=== PATIENT | male | born 1945 | race Hispanic/Latino ===

== ENCOUNTER 2018-06-22 13:17 | Observation (INO) | payer OTHER, MEDICARE ==
[2018-06-22] VITALS (8 sets, daily range): BP systolic 80–117; BP diastolic 47–72
[~2018-06-22] VITALS: Ht 162.6 cm; Wt 68.9 kg
[~2018-06-22 13:17] MED LIST: LOSA50TA25 PO; WARF-57 PO
[2018-06-22] MEDS ORDERED: ACETAMINOPHEN 325 MG TAB ONE (13:39)
[2018-06-22 13:43] LABS: BASOPHILS % (AUTO) 0.3 % (0.0-5.0); EOSINOPHILS % (AUTO) 0.1 % (0.0-8.0); HEMATOCRIT 35.3 % (42-54); LYMPHOCYTES % (AUTO) 3.3 % (21.0-51.0); MEAN CORPUSCULAR HEMOGLOBIN 28.6 pg (27.0-33.0); MEAN CORPUSCULAR HGB CONC 33.5 g/dL (32.0-36.0); MEAN CORPUSCULAR VOLUME 85.5 fL (79-99); MONOCYTES % (AUTO) 2.6 % (3.0-13.0); NEUTROPHILS % (AUTO) 93.7 % (40.0-77.0); PLATELET COUNT (AUTO) 77 K/uL (130-400); RED BLOOD CELL COUNT(AUTO) 4.13 MIL/uL (4.50-6.20); RED CELL DISTRIBUTION WIDTH 15.8 % (11.0-15.5); WHITE BLOOD COUNT (AUTO) 7.5 K/uL (4.8-10.8)
[2018-06-22 13:57] LABS: APPEARANCE,URINE CLEAR (CLEAR); BILIRUBIN,URINE NEGATIVE (NEGATIVE); COLOR,URINE YELLOW (YELLOW); GLUCOSE, URINE (UA) NEGATIVE (NEGATIVE); KETONES,URINE NEGATIVE (NEGATIVE); LEUKOCYTE ESTERASE ,URINE NEGATIVE (NEGATIVE); NITRATE,URINE NEGATIVE (NEGATIVE); OCCULT BLOOD,URINE NEGATIVE (NEGATIVE); PH,URINE 7.5 (5.0-8.0); PROTEIN,URINE NEGATIVE (NEGATIVE); UROBILINOGEN,URINE 0.2 mg/dL (0.2-1.0)
[2018-06-22] MEDS ORDERED: SODIUM CHLORIDE 0.9% 1000ML 1,000 ML IV ONE (13:57)
[2018-06-22] MEDS ORDERED: CEFTRIAXONE SODIUM 1 GM ONE (14:01)
[2018-06-22 14:02] LABS: INR 2.64 (0.85-1.15); PARTIAL THROMBOPLASTIN TIME 34.6 SEC (26.3-35.5); PROTHROMBIN TIME 27.2 SEC (9.6-11.6)
[2018-06-22 14:06] LABS: CARBON DIOXIDE 27 mmol/L (21-32); CHLORIDE 107 mmol/L (101-111); CREATININE 1.3 mg/dL (0.5-1.5); GLOMERULAR FILTR. RATE CALC 57 mL/min (>60); GLUCOSE,RANDOM 164 mg/dL (70-105); POTASSIUM 3.3 mmol/L (3.5-5.1); SODIUM SERUM 144 mmol/L (136-145); UREA NITROGEN, BLOOD 14 mg/dL (7-18)
[2018-06-22 14:17] LABS: ALANINE AMINOTRANSFERASE 31 U/L (12-78); ALBUMIN 3.5 g/dL (3.5-5.0); ASPARTATE AMINOTRANSFERASE 26 U/L (10-37); BILIRUBIN,TOTAL 0.9 mg/dL (0.2-1.0); CREATINE KINASE, TOTAL 169 U/L (21-232); MYOGLOBIN 313 ng/mL (10-92); TOTAL PROTEIN, SERUM 6.9 g/dL (6.0-8.3); TROPONIN I < 0.04 ng/mL (0.00-0.06)
[2018-06-22] MEDS ORDERED: AZITHROMYCIN 250 MG TABLET PO ONE (15:37)
[2018-06-22] MEDS ORDERED: IBUPROFEN 200 MG TAB ONE (15:38)
[2018-06-22] MEDS ORDERED: IBUPROFEN 400 MG TABLET ONE (15:38)
[2018-06-22] MEDS ORDERED: LEVOFLOXACIN 750 MG/D5W 150 ML 150 ML ONE (16:33)
[2018-06-22] MEDS ORDERED: ACETAMINOPHEN 325 MG TAB PO PRN (17:00)
--- NOTE | 2018-06-22 18:30 | NUR ---
PT ARRIVED TO THE FLOOR DENIES SOB OR CHEST PAIN PT ALERT AND ORIENTED X 3 FAMILY AT BED SIDE ENDORSE CARE TO NIGHT NURSE
[2018-06-22] MEDS: SODIUM CHLORIDE 0.9% 1000ML 1,000 ML IV SCH (19:50)
[2018-06-22] MEDS ORDERED: LACTATED RINGERS 1000ML 1,000 ML IV ONE (20:04)
--- NOTE | 2018-06-22 20:14 | NUR ---
COMMUNICATIONS ENGINEERING TECHNICIAN GUANAKO MADE AWARE OF PT'S COUMADIN MEDICATION AT HOME
[2018-06-22] MEDS ORDERED: LACTATED RINGERS 1000ML IV SCH (20:15)
[2018-06-22] MEDS ORDERED: POTASSIUM CHLORIDE 20 MEQ ERTAB PO PRN (20:30)
[2018-06-22] MEDS ORDERED: MAGNESIUM 2GM PREMIX 50ML 50 ML IV PRN (20:30)
[2018-06-22] MEDS ORDERED: POTASSIUM CHLORIDE 10% ELIXIR 20 MEQ/15 ML UDCUP PO PRN (20:30)
[2018-06-22] MEDS ORDERED: LIDOCAINE HCL-MPF 1% 2ML VIAL IVP PRN (20:30)
[2018-06-22] MEDS ORDERED: POTASSIUM CHLORIDE 20MEQ/100ML 100 ML IV PRN (20:30)
[2018-06-22] MEDS ORDERED: POTASSIUM CHLORIDE 20 MEQ ERTAB PO ONE (20:36)
[2018-06-22] MEDS: INSULIN HUMULIN R 100 UNIT/ML 3ML SQ SCH (20:55)
[2018-06-22] MEDS: DOXYCYCLINE 100MG+NS 250ML 250 ML IV SCH (22:17)
[2018-06-22] MEDS ORDERED: GLIP2.5T2 PO (22:42)
[2018-06-22] MEDS ORDERED: FURO20TA4 PO (22:42)
[2018-06-22] MEDS ORDERED: METO25TA6 PO (22:42)
[2018-06-22] MEDS ORDERED: ATOR40TA69 PO (22:42)
[2018-06-22] MEDS ORDERED: WARF-57 PO (22:42)
[2018-06-22] MEDS ORDERED: LEVO25TA54 PO (22:42)
[2018-06-22] MEDS ORDERED: WARF2.5T85 PO (22:42)
[2018-06-22] MEDS ORDERED: PANT40TA25 PO (22:42)
[2018-06-22] MEDS ORDERED: TYL3 PO (22:42)
[2018-06-23] VITALS (7 sets, daily range): BP systolic 90–130; BP diastolic 54–67
[2018-06-23 05:53] LABS: HEMATOCRIT 30.5 % (42-54); MEAN CORPUSCULAR HEMOGLOBIN 29.2 pg (27.0-33.0); MEAN CORPUSCULAR HGB CONC 33.6 g/dL (32.0-36.0); MEAN CORPUSCULAR VOLUME 87.1 fL (79-99); PLATELET COUNT (AUTO) 63 K/uL (130-400); RED CELL DISTRIBUTION WIDTH 16.3 % (11.0-15.5); WHITE BLOOD COUNT (AUTO) 10.2 K/uL (4.8-10.8)
[2018-06-23 06:07] LABS: CREATININE 1.1 mg/dL (0.5-1.5); MAGNESIUM 1.3 mg/dL (1.80-2.40); POTASSIUM 3.8 mmol/L (3.5-5.1)
[2018-06-23] MEDS: SODIUM CHLORIDE 0.9% 1000ML 1,000 ML IV SCH ×2 (06:35→21:29)
[2018-06-23] MEDS: INSULIN HUMULIN R 100 UNIT/ML 3ML SQ SCH ×4 (06:40→21:00)
[2018-06-23] MEDS: DOXYCYCLINE 100MG+NS 250ML 250 ML IV SCH ×2 (08:52→21:29)
--- NOTE | 2018-06-23 13:50 | NUR ---
RD Notification received. Patient tolerating current 7gm CCD with no report of GI distress and with fair PO at 50-75%. RD rec to modify to add Heart Healthy as patient Hx with HTN. Patient with elevated Na, Cl, Glu lab values with NaCl and antibiotic medications in place. RD to continue to monitor lab values. Additional lab values monitored: Ca 7.7, Mg 1.3. Patient BMI 26.1; okay for age. RD to continue to monitor nutritional labs and PO intake. Please notify RD as nutritional concerns arise. Thank you. Addendum: 06/23/18 at [address] RD Amended: Links added.
[2018-06-23] MEDS ORDERED: LEVOFLOXACIN 750 MG/D5W 150 ML 150 ML IV SCH (16:00)
[2018-06-24 03:00] VITALS: BP 133/73
[2018-06-24] MEDS: INSULIN HUMULIN R 100 UNIT/ML 3ML SQ SCH ×3 (06:17→16:30)
[2018-06-24 08:00] VITALS: BP 134/67
[2018-06-24] MEDS: DOXYCYCLINE 100MG+NS 250ML 250 ML IV SCH (08:31)
[2018-06-24] MEDS: SODIUM CHLORIDE 0.9% 1000ML 1,000 ML IV SCH (08:31)
[2018-06-24 11:59] VITALS: BP 148/79
[2018-06-24] MEDS ORDERED: DOXY100C2 PO (12:02)
[2018-06-24 16:00] VITALS: BP 151/78
== END 2018-06-24 18:35 | disposition home or self-care (01) ==
LOC: EDH 13:17 → EDHIP 16:28 → INTOOBSV 16:28 → OBSVTOIN 16:28 → 3CH 18:29
PROVIDERS: ADMIT Internal Medicine Pulmonary Disease; ATTEND Internal Medicine Pulmonary Disease
DX: R50.9 Fever, unspecified (principal); I25.10 Atherosclerotic heart disease of native coronary artery without angina pectoris; I10 Essential (primary) hypertension; E03.9 Hypothyroidism, unspecified; D68.59 Other primary thrombophilia; E11.51 Type 2 diabetes mellitus with diabetic peripheral angiopathy without gangrene; E66.9 Obesity, unspecified; K59.00 Constipation, unspecified; Z79.01 Long term (current) use of anticoagulants; Z95.1 Presence of aortocoronary bypass graft; Z79.899 Other long term (current) drug therapy
CPT/HCPCS: 36415 ×2; 71045; 80048; 80053; 80339; 81003; 82550; 82948 ×8; 83605; 83735; 83874; 84484; 85025; 85027; 85610; 85730; 87040 ×4; 87077 ×3; 87088; 87186 ×3; 87804 ×2; 93005; 96365; 96366 ×3; 96367; 96375; 97116 ×2; 97161; 99284; G0378 ×50; G8978; G8979; G8980; G8981; G8982; G8983; J0696; J1956 ×2; J3475; J3490 ×2; J7030 ×4; J7120 ×2

== ENCOUNTER → 2018-06-30 | Outpatient (CLI) | payer OTHER, MEDICARE ==
[~2018-06-30] MED LIST changes: +ATOR40TA69 PO; +DOXY100C2 PO; +FURO20TA4 PO; +GLIP2.5T2 PO; +LEVO25TA54 PO; -LOSA50TA25 PO; +METO25TA6 PO; +PANT40TA25 PO; +TYL3 PO; +WARF2.5T85 PO
== END | disposition home or self-care (01) ==
LOC: RAH 13:04
PROVIDERS: ATTEND Internal Medicine Hematology & Oncology
DX: I82.431 Acute embolism and thrombosis of right popliteal vein (principal); D68.59 Other primary thrombophilia; D68.9 Coagulation defect, unspecified
CPT/HCPCS: 93971

== ENCOUNTER → 2018-07-26 | Outpatient (CLI) | payer OTHER, MEDICARE | END | disposition home or self-care (01) | LOC: RAH 14:15 | PROVIDERS: ATTEND Internal Medicine Hematology & Oncology | DX: I82.501 Chronic embolism and thrombosis of unspecified deep veins of right lower extremity (principal); I82.431 Acute embolism and thrombosis of right popliteal vein | CPT/HCPCS: 93971 ==

== ENCOUNTER → 2018-11-07 | Outpatient (CLI) | payer OTHER, MEDICARE | END | disposition home or self-care (01) | LOC: SHCH 07:43 | PROVIDERS: ATTEND Internal Medicine Cardiovascular Disease | DX: I82.812 Embolism and thrombosis of superficial veins of left lower extremity (principal) | CPT/HCPCS: 93970 ==

== ENCOUNTER 2021-04-20 23:02 | Emergency (ER) | payer OTHER, MEDICARE ==
[~2021-04-20] VITALS: Ht 157.5 cm; Wt 68.0 kg
[~2021-04-20 23:02] MED LIST changes: +ACET-3194 PO; -DOXY100C2 PO; +ISOS20TA85 PO; -METO25TA6 PO; +MULT-1052 PO; -PANT40TA25 PO; +PANT40TA54 PO; -TYL3 PO
[2021-04-20 23:21] VITALS: BP 122/57
== END 2021-04-21 02:26 | disposition home or self-care (01) ==
LOC: EDH 23:02
DX: I83.891 Varicose veins of right lower extremity with other complications (principal); D69.6 Thrombocytopenia, unspecified; E11.9 Type 2 diabetes mellitus without complications; E78.00 Pure hypercholesterolemia, unspecified; I11.9 Hypertensive heart disease without heart failure; Z79.01 Long term (current) use of anticoagulants; Z79.84 Long term (current) use of oral hypoglycemic drugs; Z79.899 Other long term (current) drug therapy

== ENCOUNTER → 2021-09-07 | Outpatient (CLI) | payer OTHER, MEDICARE ==
[~2021-09-07] MED LIST changes: +IOHEXOL-350 50ML VIAL IV ONE
== END | disposition home or self-care (01) ==
LOC: RAH 07:43
PROVIDERS: ATTEND Internal Medicine Gastroenterology
DX: R63.4 Abnormal weight loss (principal); N40.2 Nodular prostate without lower urinary tract symptoms; Z95.828 Presence of other vascular implants and grafts
CPT/HCPCS: 74178; Q9967

== ENCOUNTER 2021-10-04 10:53 | Observation (INO) | payer OTHER, MEDICARE ==
[~2021-10-04] VITALS: Ht 152.4 cm; Wt 64.3 kg
[~2021-10-04 10:53] MED LIST changes: -IOHEXOL-350 50ML VIAL IV ONE
[2021-10-04] MEDS ORDERED: MORPHINE 4 MG SYG IVP SCH (11:30)
[2021-10-04] MEDS ORDERED: ONDANSETRON 4MG INJ IVP SCH (11:30)
[2021-10-04] MEDS ORDERED: 0.9%NACL 1000ML 1,000 ML IV SCH ×2 (11:30→19:00)
[2021-10-04 11:33] LABS: BASOPHILS % (AUTO) 0.4 % (0.0-5.0); EOSINOPHILS % (AUTO) 0.6 % (0.0-8.0); HEMATOCRIT 38.4 % (42-54); LYMPHOCYTES % (AUTO) 19.8 % (21.0-51.0); MEAN CORPUSCULAR HGB CONC 33.9 g/dL (32.0-36.0); MEAN CORPUSCULAR VOLUME 88.5 fL (79-99); MONOCYTES % (AUTO) 7.5 % (3.0-13.0); NEUTROPHILS % (AUTO) 71.5 % (40.0-77.0); PLATELET COUNT (AUTO) 129 K/uL (130-400); RED BLOOD CELL COUNT(AUTO) 4.34 MIL/uL (4.50-6.20); RED CELL DISTRIBUTION WIDTH 13.1 % (11.0-15.5); WHITE BLOOD COUNT (AUTO) 4.9 K/uL (4.8-10.8)
[2021-10-04 11:50] LABS: CREATININE 1.3 mg/dL (0.5-1.5); POTASSIUM 4.2 mmol/L (3.5-5.1)
[2021-10-04 11:55] LABS: INR 2.82 (0.85-1.15)
[2021-10-04 11:57] LABS: PARTIAL THROMBOPLASTIN TIME 38.4 SEC (26.3-35.5)
[2021-10-04 11:58] LABS: ALBUMIN 3.8 g/dL (3.5-5.0); BILIRUBIN,TOTAL 0.4 mg/dL (0.2-1.0); TOTAL PROTEIN, SERUM 7.4 g/dL (6.0-8.3)
[2021-10-04] MEDS ORDERED: ZOSYN 3.375GM +NS 50ML IV SCH (13:00)
[2021-10-04] MEDS ORDERED: VANCOMYCIN KIT 1 GM/250 ML IV.KIT IV ONE (13:00)
[2021-10-04] MEDS ORDERED: 0.9%NACL 50ML 50 ML IV ONE (13:15)
[2021-10-04] MEDS ORDERED: VANCOMYCIN 1G/250ML KIT 250 ML IV ONE (14:38)
[2021-10-04] MEDS ORDERED: FERR-82 PO (14:56)
[2021-10-04] MEDS ORDERED: SPIR25TA PO (14:56)
[2021-10-04] MEDS ORDERED: DAPA10TA PO (14:56)
[2021-10-04] MEDS ORDERED: MIRT-93 PO (14:56)
[2021-10-04] MEDS ORDERED: PENT400T72 PO (14:56)
[2021-10-04] MEDS ORDERED: ASCO500C6 PO (14:56)
[2021-10-04] MEDS ORDERED: SULF1TAB42 PO (14:56)
[2021-10-04] MEDS ORDERED: CLIN-141 PO (14:56)
[2021-10-04 15:15] VITALS: BP 107/50
[2021-10-04 20:00] VITALS: BP 101/52
[2021-10-04] MEDS: ZOSYN 3.375GM+NS 50ML 50 ML IV SCH (21:05)
[2021-10-05] VITALS (7 sets, daily range): BP systolic 107–131; BP diastolic 52–62
[2021-10-05] MEDS: ZOSYN 3.375GM+NS 50ML 50 ML IV SCH ×3 (04:42→22:10)
[2021-10-05] MEDS: VANCOMYCIN 1G/250ML KIT 250 ML IV SCH (10:26)
[2021-10-05] MEDS: PENTOXIFYLLINE 400 MG TABLET.SA PO SCH ×2 (14:12→22:09)
[2021-10-05] MEDS ORDERED: WARFARIN SODIUM 5 MG TAB PO SCH (16:00)
[2021-10-05] MEDS ORDERED: MIRTAZAPINE 15 MG TABLET PO SCH (21:00)
[2021-10-05] MEDS ORDERED: NON-FORMULARY MEDICATION 1 EACH (Mirtazapine 30 MG) PO SCH (21:00)
[2021-10-05] MEDS ORDERED: ATORVASTATIN 40 MG TABLET PO SCH (21:00)
[2021-10-06 04:27] VITALS: BP 146/58
[2021-10-06] MEDS: ZOSYN 3.375GM+NS 50ML 50 ML IV SCH (05:36)
[2021-10-06] MEDS ORDERED: LEVOTHYROXINE 25 MCG TABLET PO SCH (07:30)
[2021-10-06 08:00] VITALS: BP 134/66
[2021-10-06] MEDS ORDERED: GLIPIZIDE XL 2.5MG TAB PO SCH (09:00)
[2021-10-06] MEDS ORDERED: NON-FORMULARY MEDICATION 1 EACH (Ascorbic Acid (Vitamin C) 500 MG) PO SCH (09:00)
[2021-10-06] MEDS ORDERED: PANTOPRAZOLE 40 MG TAB DR PO SCH (09:00)
[2021-10-06] MEDS ORDERED: ISOSORBIDE MONONITRATE 20 MG TABLET PO SCH (09:00)
[2021-10-06] MEDS ORDERED: (Dapagliflozin Propanediol (Farxiga) 10 MG) PO SCH (09:00)
[2021-10-06] MEDS ORDERED: FERROUS SULFATE 325 MG TABLET.DR PO SCH (09:00)
[2021-10-06] MEDS ORDERED: NON-FORMULARY MEDICATION 1 EACH (Ferrous Sulfate (Iron) 325 MG) PO SCH (09:00)
[2021-10-06] MEDS ORDERED: ASCORBIC ACID 500 MG TAB PO SCH (09:00)
[2021-10-06] MEDS ORDERED: BACITRACIN 28.4 GM OINT TP SCH (09:00)
[2021-10-06] MEDS ORDERED: SPIRONOLACTONE 25 MG TAB PO SCH (09:00)
[2021-10-06] MEDS: PENTOXIFYLLINE 400 MG TABLET.SA PO SCH (10:04)
[2021-10-06] MEDS: VANCOMYCIN 1G/250ML KIT 250 ML IV SCH (10:34)
[2021-10-06 11:30] VITALS: BP 113/53
[2021-10-07] MEDS ORDERED: MULTIVITAMIN PO SCH (09:00)
[2021-10-07] MEDS ORDERED: FUROSEMIDE 20 MG TABLET PO SCH (09:00)
[2021-10-07] MEDS ORDERED: MULTIVITAMIN TABLET PO SCH (09:00)
== END 2021-10-06 14:11 | disposition home or self-care (01) ==
LOC: EDH 10:53 → EDHIP 12:51 → 3DH 15:11
PROVIDERS: ADMIT Internal Medicine Hematology & Oncology; ATTEND Internal Medicine Hematology & Oncology
DX: L03.115 Cellulitis of right lower limb (principal); D68.59 Other primary thrombophilia; I25.10 Atherosclerotic heart disease of native coronary artery without angina pectoris; I82.501 Chronic embolism and thrombosis of unspecified deep veins of right lower extremity; E11.51 Type 2 diabetes mellitus with diabetic peripheral angiopathy without gangrene; I10 Essential (primary) hypertension; R60.0 Localized edema; E86.1 Hypovolemia; E78.00 Pure hypercholesterolemia, unspecified; L97.919 Non-pressure chronic ulcer of unspecified part of right lower leg with unspecified severity; Z79.01 Long term (current) use of anticoagulants; Z95.1 Presence of aortocoronary bypass graft; Z79.899 Other long term (current) drug therapy; Z98.890 Other specified postprocedural states; Z79.4 Long term (current) use of insulin
CPT/HCPCS: 36415; 73590; 80053; 83605; 85025; 85610; 85730; 87040 ×2; 93926; 93971; 96361; 96365; 96366 ×3; 96367; 96375; 99285; G0378 ×49; J2270; J2405; J2543 ×6; J3370 ×3; J7030

== ENCOUNTER 2022-04-11 10:59 | Emergency (ER) | payer OTHER, MEDICARE ==
[~2022-04-11] VITALS: Ht 157.5 cm; Wt 68.0 kg
[~2022-04-11 10:59] MED LIST changes: +ASCO500C6 PO; +CLIN-141 PO; +DAPA10TA PO; +FERR-82 PO; +MIRT-93 PO; +PENT400T72 PO; +SPIR25TA PO; +SULF1TAB42 PO
[2022-04-11 12:11] LABS: BASOPHILS % (AUTO) 0.8 % (0.0-5.0); EOSINOPHILS % (AUTO) 4.1 % (0.0-8.0); HEMATOCRIT 38.6 % (42-54); LYMPHOCYTES % (AUTO) 19.5 % (21.0-51.0); MEAN CORPUSCULAR HEMOGLOBIN 29.4 pg (27.0-33.0); MEAN CORPUSCULAR HGB CONC 33.2 g/dL (32.0-36.0); MEAN CORPUSCULAR VOLUME 88.7 fL (79-99); MONOCYTES % (AUTO) 8.3 % (3.0-13.0); NEUTROPHILS % (AUTO) 67.1 % (40.0-77.0); PLATELET COUNT (AUTO) 107 K/uL (130-400); RED BLOOD CELL COUNT(AUTO) 4.35 MIL/uL (4.50-6.20); RED CELL DISTRIBUTION WIDTH 13.4 % (11.0-15.5); WHITE BLOOD COUNT (AUTO) 4.9 K/uL (4.8-10.8)
[2022-04-11 12:25] LABS: CREATININE 1.1 mg/dL (0.5-1.5); POTASSIUM 3.7 mmol/L (3.5-5.1)
[2022-04-11 12:29] LABS: ALBUMIN 3.7 g/dL (3.5-5.0); TOTAL PROTEIN, SERUM 7.3 g/dL (6.0-8.3)
[2022-04-11] MEDS ORDERED: CEFTRIAXONE 1G VIAL IVP ONE ×2 (12:30→13:27)
[2022-04-11 12:46] LABS: INR 2.45 (0.85-1.15); PROTHROMBIN TIME 25.4 SEC (9.6-11.6)
[2022-04-11] MEDS ORDERED: CEFU500T67 PO (13:07)
[2022-04-11 13:39] VITALS: BP 118/72
== END 2022-04-11 13:54 | disposition home or self-care (01) ==
LOC: EDH 10:59
DX: L03.115 Cellulitis of right lower limb (principal); D64.9 Anemia, unspecified; E11.9 Type 2 diabetes mellitus without complications; E78.00 Pure hypercholesterolemia, unspecified; I10 Essential (primary) hypertension; Z98.890 Other specified postprocedural states; Z79.899 Other long term (current) drug therapy; Z79.01 Long term (current) use of anticoagulants; Z79.84 Long term (current) use of oral hypoglycemic drugs
CPT/HCPCS: 99284; 96374; 93971; 80053; 85025; 85610; 87040 ×2; 83605; 86140; 36415; J0696

== ENCOUNTER → 2022-07-07 | Outpatient (CLI) | payer OTHER, MEDICARE ==
[~2022-07-07] MED LIST changes: +CEFU500T67 PO
== END | disposition home or self-care (01) ==
LOC: SHCH 09:01
PROVIDERS: ATTEND Internal Medicine Cardiovascular Disease
DX: I25.10 Atherosclerotic heart disease of native coronary artery without angina pectoris (principal)
CPT/HCPCS: 93306

== ENCOUNTER 2024-02-23 11:38 | Emergency (ER) | payer OTHER, MEDICARE ==
[~2024-02-23] VITALS: Ht 160 cm; Wt 65.3 kg
[~2024-02-23 11:38] MED LIST changes: +ASCO500C19 PO; -ASCO500C6 PO
[2024-02-23 12:34] LABS: BASOPHILS # (AUTO) 0.01 K/uL (0.00-0.20); BASOPHILS % (AUTO) 0.2 % (0.0-5.0); EOSINOPHILS # (AUTO) 0.04 K/uL (0.00-0.70); EOSINOPHILS % (AUTO) 0.9 % (0.0-8.0); HEMATOCRIT 36.9 % (42-54); IMMATURE GRANULOCYTE ABSOLUTE 0.03 K/uL (0-1); LYMPHOCYTES # (AUTO) 0.8 K/uL (1.0-4.8); LYMPHOCYTES % (AUTO) 17.7 % (21.0-51.0); MEAN CORPUSCULAR HEMOGLOBIN 30.1 pg (27.0-33.0); MEAN CORPUSCULAR HGB CONC 33.6 g/dL (32.0-36.0); MEAN CORPUSCULAR VOLUME 89.6 fL (79-99); MONOCYTES # (AUTO) 0.3 K/uL (0.1-1.0); MONOCYTES % (AUTO) 6.7 % (3.0-13.0); NEUTROPHILS # (AUTO) 3.4 K/uL (1.8-7.7); NEUTROPHILS % (AUTO) 73.9 % (40.0-77.0); PLATELET COUNT (AUTO) 90 K/uL (130-400); RED BLOOD CELL COUNT(AUTO) 4.12 MIL/uL (4.50-6.20); RED CELL DISTRIBUTION WIDTH 13.7 % (11.0-15.5); WHITE BLOOD COUNT (AUTO) 4.6 K/uL (4.8-10.8)
[2024-02-23 12:44] LABS: CREATININE 1.2 mg/dL (0.5-1.3); POTASSIUM 3.9 mmol/L (3.5-5.1)
[2024-02-23 12:46] LABS: INR 1.18 (0.85-1.15); PROTHROMBIN TIME 12.6 SEC (9.6-11.6)
[2024-02-23 12:48] LABS: PARTIAL THROMBOPLASTIN TIME 27.2 SEC (26.3-35.5)
[2024-02-23] MEDS ORDERED: BACITRACIN 1 EACH PACKET TP ONE (13:00)
[2024-02-23 13:57] VITALS: BP 112/56; PULSE 57; RESP 16; O2SAT 99
== END 2024-02-23 14:01 | disposition home or self-care (01) ==
LOC: EDH 11:38
DX: S00.03XA Contusion of scalp, initial encounter (principal); G62.9 Polyneuropathy, unspecified; R26.89 Other abnormalities of gait and mobility; Z79.01 Long term (current) use of anticoagulants; Z86.718 Personal history of other venous thrombosis and embolism; Z79.2 Long term (current) use of antibiotics; Z79.899 Other long term (current) drug therapy; Z98.890 Other specified postprocedural states; W05.0XXA Fall from non-moving wheelchair, initial encounter; Y93.89 Activity, other specified; Y92.481 Parking lot as the place of occurrence of the external cause; Y99.8 Other external cause status
CPT/HCPCS: 36415; 70450; 80048; 85025; 85610; 85730